=== PATIENT | female | born 1985 | race Caucasian/White ===

== ENCOUNTER 2020-12-13 13:10 | Emergency (ER) | payer OTHER ==
[2020-12-13 13:17] VITALS: BP 114/77; PULSE 81; TEMP 99; BMI 26.4
[2020-12-13] MEDS ORDERED: ACETAMINOPHEN 1000 MG/100 ML VIAL (NON FORMULARY) IVPB ONE (13:53)
[2020-12-13] MEDS ORDERED: ACETAMINOPHEN INJECTION 100 ML IVPB ONE (14:05)
[2020-12-13 14:08] LABS: HCG,QUALITATIVE URINE Negative
[2020-12-13 14:14] LABS: EPITHELIAL CELLS MANY /hpf
[2020-12-13 14:21] LABS: BASO % 2.1 % (0-2.0); EOS % 0.6 % (0-4.5); HEMOGLOBIN 12.2 GM/dl (10.7-15.3); LYMPH % 11.9 % (8-40); MCH 29.6 pg (25.7-33.7); MCHC 33.9 g/dl (32.0-36.0); MEAN CELL VOLUME 87.2 fl (80-96); MEAN PLT VOLUME 9.3 fl (7.5-11.1); NEUT % 80.4 % (42.8-82.8); PLATELET COUNT 228 10^3/uL (134-434); RBC 4.13 M/mm3 (3.60-5.2); RDW 13.2 % (11.6-15.6); WHITE BLOOD COUNT 10.9 K/mm3 (4.0-10.8)
[2020-12-13 14:29] LABS: ALBUMIN 4.1 g/dl (3.4-5.0); BILIRUBIN,TOTAL 0.6 mg/dl (0.2-1); CALCIUM 9.1 mg/dl (8.5-10); CREATININE 0.8 mg/dl (0.55-1.3); MAGNESIUM 2.1 mg/dL (1.8-2.4); TOT PROT 7.3 g/dl (6.4-8.2)
[2020-12-13] MEDS ORDERED: FLUCONAZOLE 150 MG TABLET PO ONE ×2 (15:22)
[2020-12-13] MEDS ORDERED: AZITHROMYCIN 500 MG TABLET PO ONE (15:23)
[2020-12-13] MEDS ORDERED: AZITHROMYCIN 250 MG TABLET ONE (15:26)
== END 2020-12-13 15:45 | disposition home or self-care (01) ==
LOC: FER 13:10
DX: N85.00 Endometrial hyperplasia, unspecified (principal); N83.209 Unspecified ovarian cyst, unspecified side; B37.3 Candidiasis of vulva and vagina
CPT/HCPCS: 36415; 76830-TC; 80053; 81003; 81015; 83735; 84703; 85025; 86850; 86900; 86901; 87081; 87086; 87186; 87491; 87591; 87661; 99284-25; J0131